=== PATIENT | male | born 2000 | race Two or more races ===

== ENCOUNTER 2025-01-20 10:45 | Inpatient (IN) | payer OTHER ==
[2025-01-20 11:02] VITALS: BMI 23.3
[2025-01-20] MEDS ORDERED: IBUPROFEN 400 MG TABLET (FP) PO PRN (11:31)
[2025-01-20] MEDS ORDERED: POLYETHYLENE GLYCOL (HEALTHYLAX) 3350 17 GM PACKET PO PRN (11:31)
[2025-01-20] MEDS ORDERED: ONDANSETRON *ODT* 4 MG TABLET SL PRN (11:31)
[2025-01-20] MEDS ORDERED: BENZOCAINE/MENTHOL (CHLORASEPTIC ) LOZENGE MM PRN (11:31)
[2025-01-20] MEDS ORDERED: NALOXONE (NARCAN) HCL 4 MG/0.1 ML SPRAY NS PRN (11:31)
[2025-01-20] MEDS ORDERED: guaiFENesin 600 MG TABLET.ER (FP) PO PRN (11:31)
[2025-01-20] MEDS ORDERED: ACETAMINOPHEN 325 MG TABLET (FP) PO PRN (11:31)
[2025-01-20] MEDS ORDERED: BENZONATATE 200 MG CAPSULE PO PRN (11:31)
[2025-01-20] MEDS ORDERED: NICOTINE POLACRILEX 4 MG LOZENGE BC PRN (11:31)
[2025-01-20] MEDS ORDERED: MAG HYDROX/AL HYDROX/SIMETH 30 ML UNIT-DOSE CUP PO PRN (11:31)
[2025-01-20] MEDS ORDERED: BISMUTH SUBSALICYLATE 524 MG/30 ML PO PRN (11:31)
[2025-01-20] MEDS ORDERED: NICOTINE POLACRILEX 4 MG GUM BUC PRN (11:31)
[2025-01-20] MEDS ORDERED: LOPERAMIDE HCL 2 MG CAPSULE PO PRN (11:31)
[2025-01-20] MEDS ORDERED: MAGNESIUM HYDROX 2400MG/30ML ORAL SUSPENSION 30 ML CUP PO PRN (11:31)
[2025-01-20] MEDS ORDERED: DICYCLOMINE HCL 10 MG CAPSULE PO PRN (11:31)
[2025-01-20] MEDS: hydrOXYzine PAMOATE 25 MG CAPSULE (FP) PO PRN (16:01)
[2025-01-20] MEDS: METHOCARBAMOL 500 MG TABLET PO PRN (17:52)
[2025-01-20] MEDS: IBUPROFEN 600 MG TABLET (FP) PO PRN (17:52)
[2025-01-20] MEDS: MELATONIN 5 MG TABLETS PO SCH (22:19)
[2025-01-20] MEDS: THIAMINE 100 MG TABLET PO SCH (22:19)
[2025-01-21] MEDS: PRENATAL VITAMINS W/ FOLIC ACID TABLET (FP) PO SCH (09:49)
[2025-01-21] MEDS: NICOTINE 21 MG/24 HOURS TOPICAL PATCH TD SCH (09:50)
[2025-01-21 12:36] LABS: MCHC 31.3 g/dl (32.3-36.5); MEAN CELL VOLUME 86.8 fl (79.0-92.2); MEAN PLT VOLUME 10.4 fl (9.4-12.4); RDW 15.0 % (11.9-15.3)
[2025-01-21 12:52] LABS: GLUCOSE,RANDOM 114 mg/dL (74-106)
[2025-01-21 12:53] LABS: TOT PROT 5.9 g/dl (6.4-8.2)
[2025-01-21 12:54] LABS: CO2 25 mmol/L (21-32)
[2025-01-21 12:56] LABS: ALK PHOS 98 U/L (40-150)
[2025-01-21 12:58] LABS: CREATININE 0.79 mg/dL (0.55-1.3); SGOT/AST 25 U/L (5-34); SGPT/ALT 25 U/L (0-55)
[2025-01-21] MEDS: SULFAMETHOXAZOLE/TRIMETHOPRIM 800MG/160MG D.S. TABLET PO SCH (22:03)
[2025-01-22 06:41] VITALS: RESP 16; TEMP 97.9
[2025-01-22 08:47] VITALS: BP 143/77; PULSE 98
== END 2025-01-22 09:45 | disposition home or self-care (01) | DRG 775 ==
LOC: YASAS 10:45 → Y6N 11:55
PROVIDERS: ADMIT Allergy & Immunology; ATTEND Family Medicine
PROC: HZ2ZZZZ Detoxification Services for Substance Abuse Treatment (ICD-10-PCS; principal; 2025-01-20)
DX: F10.230 Alcohol dependence with withdrawal, uncomplicated (principal); F12.20 Cannabis dependence, uncomplicated; F17.210 Nicotine dependence, cigarettes, uncomplicated; F10.282 Alcohol dependence with alcohol-induced sleep disorder; F10.280 Alcohol dependence with alcohol-induced anxiety disorder; F41.9 Anxiety disorder, unspecified; F32.A Depression, unspecified; F90.9 Attention-deficit hyperactivity disorder, unspecified type; I10 Essential (primary) hypertension
CPT/HCPCS: 36415; 80053; 80307; 85027; 86780; 93005; 93010